=== PATIENT | female | born 1995 | race Caucasian/White ===

== ENCOUNTER 2020-11-17 18:16 | Emergency (ER) | payer BC, SELFPAY ==
--- NOTE | ~2020-11-17 | XR_ITS ---
EXAMINATION: XR ankle RT min 3V INDICATION: Right ankle pain TECHNIQUE: Four views of the right ankle are obtained. COMPARISON: None available FINDINGS: There is soft tissue swelling of ankle. Bone alignment is normal. There is no fracture. IMPRESSION: 1. No acute osseous abnormality. Reviewed, dictated and finalized at location A.
[2020-11-17 18:51] VITALS: BP 147/65; PULSE 77; RESP 14; TEMP 36.7; O2SAT 99
--- NOTE | 2020-11-17 19:31 | ED.GENADULT ---
HPI - General Adult General Chief complaint: Extremity Injury, Lower <Rosita Carballo PA-C - Last Filed: 11/17/20 20:17> Stated complaint: Right Ankle Injury <Rosita Carballo PA-C - Last Filed: 11/17/20 20:17> Time Seen by Provider: 11/17/20 19:30 <Rosita Carballo PA-C - Last Filed: 11/17/20 20:17> Source: patient <Rosita Carballo PA-C - Last Filed: 11/17/20 20:17> Mode of arrival: ambulatory <Rosita Carballo PA-C - Last Filed: 11/17/20 20:17> Limitations: no limitations <Rosita Carballo PA-C - Last Filed: 11/17/20 20:17> History of Present Illness HPI narrative: Patient was walking down a single step in her house earlier this evening when she stepped sideways and rolled her ankle . She did not feel any pop she was able to bear weight. She is not injured this ankle ever before. <Rosita Carballo PA-C - Last Filed: 11/17/20 20:17> Onset (ago): hour(s) <Rosita Carballo PA-C - Last Filed: 11/17/20 20:17> Severity: moderate <Rosita Carballo PA-C - Last Filed: 11/17/20 20:17> Pain Consistency: intermittent (with walking ) <Rosita Carballo PA-C - Last Filed: 11/17/20 20:17> Associated symptoms: denies other symptoms <Rosita Carballo PA-C - Last Filed: 11/17/20 20:17> Related Data Allergies/adverse reactions: Allergies Allergy/AdvReac Type Severity Reaction Status Date / Time No Known Allergies Allergy Verified 11/17/20 19:28 <MAVERICK Felton Last Filed: 11/17/20 20:17> Review of Systems Review of Systems: All systems reviewed & are unremarkable except as noted in HPI and below <Rosita Carballo PA-C - Last Filed: 11/17/20 20:17> Exam Const: General: no acute distress and alert <MAVERICK Felton Last Filed: 11/17/20 20:17> Orientation/consciousness: patient oriented x3 <MAVERICK Felton Last Filed: 11/17/20 20:17> Resp: Effort & Inspection: normal respiratory effort <MAVERICK Felton Last Filed: 11/17/20 20:17> Auscultation: clear to auscultation bilaterally <Rosita Carballo PA-C - Last Filed: 11/17/20 20:17> Cardio: Rate: regular rate <MAVERICK Felton Last Filed: 11/17/20 20:17> Rhythm: regular rhythm <MAVERICK Felton Last Filed: 11/17/20 20:17> Peripheral pulses: dorsalis pedis present on the right <MAVERICK Felton Last Filed: 11/17/20 20:17> Skin: General skin exam: normal color <MAVERICK Felton Last Filed: 11/17/20 20:17> Other: No bruising <MAVERICK Felton Last Filed: 11/17/20 20:17> Extrem: General: edema (ankle, lateral aspect) right <MAVERICK Felton Last Filed: 11/17/20 20:17> Psych: Mental Status: mental status grossly normal <MAVERICK Felton Last Filed: 11/17/20 20:17> Course Vital Signs Vital signs: Vital Signs Temperature 98.1 F 11/17/20 18:51 Pulse Rate 77 11/17/20 18:51 Respiratory Rate 14 11/17/20 18:51 Blood Pressure 147/65 H 11/17/20 18:51 Pulse Oximetry 99 11/17/20 18:51 Temperature 98.1 F 11/17/20 19:32 Pulse Rate 78 11/17/20 19:32 Respiratory Rate 18 11/17/20 19:32 Blood Pressure 147/65 H 11/17/20 19:32 Pulse Oximetry 99 11/17/20 19:32 <MAVERICK Felton Last Filed: 11/17/20 20:17> Medical Decision Making Vital Signs Vital Signs: Vital Signs Temperature 98.1 F 11/17/20 18:51 Pulse Rate 77 11/17/20 18:51 Respiratory Rate 14 11/17/20 18:51 Blood Pressure 147/65 H 11/17/20 18:51 Pulse Oximetry 99 11/17/20 18:51 Temperature 98.1 F 11/17/20 19:32 Pulse Rate 78 11/17/20 19:32 Respiratory Rate 18 11/17/20 19:32 Blood Pressure 147/65 H 11/17/20 19:32 Pulse Oximetry 99 11/17/20 19:32 <Rosita Carballo PA-C - Last Filed: 11/17/20 20:17> Discharge Plan Discharge Clinical Impression: Ankle sprain and strain <Rosita Carballo PA-C - Last Filed: 11/17/20 20:17> Patient Disposition: Home, Self-
[2020-11-17 19:32] VITALS: BP 147/65; PULSE 78; RESP 18; TEMP 36.7; O2SAT 99
== END 2020-11-17 20:21 | disposition home or self-care (01) ==
LOC: ANHED 20:11
PROVIDERS: Emergency Provider General Practice
DX: S93.401A Sprain of unspecified ligament of right ankle, initial encounter (principal); S96.911A Strain of unspecified muscle and tendon at ankle and foot level, right foot, initial encounter; X50.9XXA Other and unspecified overexertion or strenuous movements or postures, initial encounter
CPT/HCPCS: 73610; 99283

== ENCOUNTER 2021-12-25 11:34 | Emergency (ER) | payer BC, SELFPAY ==
[2021-12-25 12:03] VITALS: BP 126/76; PULSE 101; RESP 20; TEMP 36.3; O2SAT 98
--- NOTE | 2021-12-25 12:09 | ED.URI ---
HPI - URI/Sore Throat General Chief Complaint: Upper Respiratory Infection Stated Complaint: SORE THROAT/COUGH Time Seen by Provider: 12/25/21 12:09 Source: patient Mode of arrival: ambulatory Limitations: no limitations History of Present Illness HPI Narrative: 26-year-old female presents with complaint cough, congestion, sweating, fatigue, sore throat for 2-3 days. Afebrile. No nausea vomiting diarrhea. Patient's and has been sick with similar symptoms. Patient is 37 weeks . No complaints today. All systems reviewed and negative except as noted above. Related Data Home Medications Medication Instructions Recorded Confirmed No Home Medications 12/25/21 12/25/21 Allergies Allergy/AdvReac Type Severity Reaction Status Date / Time No Known Allergies Allergy Verified 12/25/21 11:56 Review of Systems Review of Systems: CONSTITUTIONAL: Denies fever, chills. Reports sweats. EYES: Denies visual changes, redness, or discharge. ENT: Reports rhinorrhea, congestion, sore throat. Today otalgia. CARDIOVASCULAR: Denies chest pain, palpitations, or edema. RESPIRATORY: Reports cough. Denies dyspnea. GASTROINTESTINAL: Denies abdominal pain, nausea, vomiting, or diarrhea. GENITOURINARY: Denies dysuria or hematuria. SKIN: Denies rash or itching. MUSCULOSKELETAL: Denies back pain, joint pain, or myalgia. NEUROLOGIC: Denies headache, numbness, or weakness. PSYCHIATRIC: Denies anxiety or depression. All other systems reviewed are negative, except as documented in HPI. PMFSH Comments At time of signature, agree with nursing past medical, surgical, social and family history. There is no relevant family history pertinent to the presenting complaint. Exam Narrative: GENERAL: This is a well-nourished, well-developed patient, in no apparent distress. HEAD: normocephalic, atraumatic. EYES: PERRL. Sclera clear/white. Vision is grossly intact. EARS: External ears normal, auditory canals clear and without drainage, TMs normal without perforation. Hearing grossly intact. NOSE: External nose normal with clear nasal drainage, mild congestion. THROAT: Mucous membranes moist, mild erythema with clear postnasal drainage. NECK: Neck supple, non-tender without lymphadenopathy, masses or thyromegaly. CARDIOVASCULAR: Regular rate and rhythm without murmurs, gallops, or rubs. RESPIRATORY: Clear to auscultation. Breath sounds equal bilaterally. No wheezes, rales, or rhonchi. SKIN: warm, Dry, intact with no suspicious lesions or rash, good texture and turgor. NEURO: awake, alert, and oriented to person, place and time. There were no obvious focal neurologic abnormalities. EXTREMITIES: No joint tenderness, effusion, or edema noted. Course Course Level of Care: Express Care Visit Vital Signs Vital signs: Vital Signs Temperature 36.3 C L 12/25/21 12:03 Pulse Rate 101 H 12/25/21 12:03 Respiratory Rate 20 12/25/21 12:03 Blood Pressure 126/76 12/25/21 12:03 Pulse Oximetry 98 12/25/21 12:03 Temperature 36.3 C L 12/25/21 12:03 Pulse Rate 101 H 12/25/21 12:03 Respiratory Rate 20 12/25/21 12:03 Blood Pressure 126/76 12/25/21 12:03 Pulse Oximetry 98 12/25/21 12:03 Reviewed MDM - URI/Sore Throat MDM Narrative Medical decision making narrative: Patient is aware of diagnosis, understands and agrees to treatment plan. Anticipatory guidance given. Patient agrees to follow-up as directed and is aware of reasons to seek care at the emergency department. Portions of this record may have been created with voice recognition software Differential Diagnosis Differential diagnosis: Likely upper respiratory infection, sinusitis, viral infection and influenza Lab Data Labs: Strep Screen Presumptive Negative *(Reference Range: Negative)* Discharge Plan Discharge Clinical Impression: Viral upper respiratory tract infection Patient
== END 2021-12-25 12:45 | disposition home or self-care (01) ==
PROVIDERS: Emergency Provider Nurse Practitioner Family; PCP Family Medicine
DX: O99.513 Diseases of the respiratory system complicating pregnancy, third trimester (principal); Z3A.37 37 weeks gestation of pregnancy; J06.9 Acute upper respiratory infection, unspecified
CPT/HCPCS: 87081; 87880; 99213; G0463

== ENCOUNTER 2022-10-06 16:14 | Emergency (ER) | payer BC, SELFPAY ==
[2022-10-06 16:32] VITALS: BP 124/70; PULSE 77; RESP 16; TEMP 36.4; O2SAT 100
--- NOTE | 2022-10-06 16:56 | ED.FEMALEGU ---
HPI - Female Genitourinary General Chief complaint: Urogenital-Female Stated complaint: UTI SYMPTOMS Time Seen by Provider: 10/06/22 16:53 Source: patient and RN notes reviewed Mode of arrival: ambulatory Limitations: no limitations History of Present Illness HPI Narrative: Patient presents today complaining of lower abdominal pain, dysuria, urgency x3 days. She tried some cranberry juice without relief. Patient is currently menstruating. Related Data Allergies Allergy/AdvReac Type Severity Reaction Status Date / Time No Known Allergies Allergy Verified 10/06/22 16:20 Review of Systems Review of Systems: CONSTITUTIONAL: Denies body aches, fever, chills, or sweats. EYES: Denies visual changes, redness, or discharge. ENT: Denies rhinorrhea, congestion, sore throat, or otalgia. CARDIOVASCULAR: Denies chest pain, palpitations, or edema. RESPIRATORY: Denies cough or dyspnea. GASTROINTESTINAL: Denies nausea, vomiting, or diarrhea.+ lower abdominal pain GENITOURINARY:+ dysuria, urgency SKIN: Denies rash, itching, or wounds. MUSCULOSKELETAL: Denies back pain, joint pain, or myalgia. NEUROLOGIC: Denies headache, numbness, tingling, or weakness. PSYCH: Denies depression or anxiety. PMFSH Comments At time of signature, I have reviewed and agree with nursing past medical, surgical, social and family history unless otherwise noted. Please see nursing chart for further information. There is no relevant family history pertinent to the presenting complaint Exam Narrative: GENERAL: Well-appearing, well-nourished, and in no acute distress. HEAD: Normocephalic, atraumatic. EYES: EOMI. No redness or drainage. Conjunctivae normal. ENT: Mucous membranes pink and moist. NECK: Normal AROM. CHEST: No respiratory distress. Clear to auscultation. HEART: Regular rate and rhythm. No murmur appreciated. Normal peripheral pulses.-CVAT ABDOMEN: Soft, nondistended, normal active bowel sounds. EXTREMITIES: Normal range of motion. No edema. SKIN: Warm, dry, no rash. Capillary refill normal. Normal skin turgor. NEURO: No focal deficits. Alert and oriented x3. Gait steady. PSYCH: Normal affect. No signs of depression or anxiety. Course Course Level of Care: Express Care Visit Vital Signs Vital signs: Vital Signs Temperature 97.5 F L 10/06/22 16:32 Pulse Rate 77 10/06/22 16:32 Respiratory Rate 16 10/06/22 16:32 Blood Pressure 124/70 10/06/22 16:32 Pulse Oximetry 100 10/06/22 16:32 Temperature 97.5 F L 10/06/22 16:32 Pulse Rate 77 10/06/22 16:32 Respiratory Rate 16 10/06/22 16:32 Blood Pressure 124/70 10/06/22 16:32 Pulse Oximetry 100 10/06/22 16:32 Reviewed. Pt has been instructed to follow up with her PCP regarding her elevated blood pressure today. MDM - Female Genitourinary MDM Narrative Medical decision making narrative: Urinalysis is consistent with UTI. Will start patient on Keflex. Anticipatory guidance given. Differential Diagnosis Differential diagnosis: Likely urinary tract infection, vaginitis and cystitis Lab Data Attestation: I reviewed the patient's lab results. Labs: Urine Glucose Negative Reference Range: Negative Urine Bilirubin 1+ Reference Range: Negative Urine Ketone Negative Reference Range: Negative Urine Specific [place] 1.030 Reference Range:1.001-1.035 Urine Blood 3+ Reference Range: Negative * * Urine pH 5.5 Reference Range: 5.0-9.0 Urine Protein 3+
== END 2022-10-06 17:02 | disposition home or self-care (01) ==
PROVIDERS: Emergency Provider Nurse Practitioner; PCP Obstetrics & Gynecology
DX: N30.01 Acute cystitis with hematuria (principal)
CPT/HCPCS: 81003; 87077; 87086; 87186; 99213; G0463

== ENCOUNTER 2023-04-23 16:00 | Emergency (ER) | payer BC, SELFPAY ==
[2023-04-23 16:38] VITALS: BP 103/70; PULSE 68; RESP 16; TEMP 36.4; O2SAT 100
--- NOTE | 2023-04-23 17:18 | ED.FEMALEGU ---
HPI - Female Genitourinary General Chief complaint: Urogenital-Female Stated complaint: Uti Symptoms Time Seen by Provider: 04/23/23 17:14 Source: patient, RN notes reviewed and old records reviewed Mode of arrival: ambulatory Limitations: no limitations History of Present Illness HPI Narrative: Patient presents today complaining of 2 day history of urgency, dysuria, and suprapubic pain. Denies fever, back pain, sweats or chills, nausea vomiting. She has tried no medication for symptoms prior to arrival. Related Data Allergies Allergy/AdvReac Type Severity Reaction Status Date / Time No Known Allergies Allergy Verified 10/06/22 16:20 Review of Systems Review of Systems: CONSTITUTIONAL: Denies body aches, fever, chills, or sweats. EYES: Denies visual changes, redness, or discharge. ENT: Denies rhinorrhea, congestion, sore throat, or otalgia. CARDIOVASCULAR: Denies chest pain, palpitations, or edema. RESPIRATORY: Denies cough or dyspnea. GASTROINTESTINAL: Denies abdominal pain, nausea, vomiting, or diarrhea. GENITOURINARY: + urgency, dysuria, suprapubic pain SKIN: Denies rash, itching, or wounds. MUSCULOSKELETAL: Denies back pain, joint pain, or myalgia. NEUROLOGIC: Denies headache, numbness, tingling, or weakness. PSYCH: Denies depression or anxiety. PMFSH Comments At time of signature, I have reviewed and agree with nursing past medical, surgical, social and family history unless otherwise noted. Please see nursing chart for further information. There is no relevant family history pertinent to the presenting complaint Exam Narrative: GENERAL: Well-appearing, well-nourished, and in no acute distress. HEAD: Normocephalic, atraumatic. EYES: EOMI. No redness or drainage. Conjunctivae normal. ENT: Mucous membranes pink and moist. NECK: Normal AROM. CHEST: No respiratory distress. Clear to auscultation. HEART: Regular rate and rhythm. No murmur appreciated. ABDOMEN: Soft, nondistended, normal active bowel sounds.+ mildly tender suprapubic area EXTREMITIES: Normal range of motion. No edema. SKIN: Warm, dry, no rash. Capillary refill normal. Normal skin turgor. NEURO: No focal deficits. Alert and oriented x3. Gait steady. PSYCH: Normal affect. No signs of depression or anxiety. Course Course Level of Care: Express Care Visit Vital Signs Vital signs: Vital Signs Temperature 97.5 F L 04/23/23 16:38 Pulse Rate 68 04/23/23 16:38 Respiratory Rate 16 04/23/23 16:38 Blood Pressure 103/70 04/23/23 16:38 Pulse Oximetry 100 04/23/23 16:38 Temperature 97.5 F L 04/23/23 16:38 Pulse Rate 68 04/23/23 16:38 Respiratory Rate 16 04/23/23 16:38 Blood Pressure 103/70 04/23/23 16:38 Pulse Oximetry 100 04/23/23 16:38 Reviewed MDM - Female Genitourinary MDM Narrative Medical decision making narrative: Urinalysis is consistent with UTI. Review of previous urine culture shows susceptibility to Keflex. Prescription sent to pharmacy. Anticipatory guidance given. Differential Diagnosis Differential diagnosis: Likely urinary tract infection, vaginitis and cystitis Lab Data Attestation: I reviewed the patient's lab results. Labs: Urine Glucose Negative Reference Range: Negative Urine Bilirubin Negative Reference Range: Negative Urine Ketone Trace Reference Range: Negative Urine Specific [place] 1.030 Reference Range:1.001-1.035 Urine Blood 1+ Reference Range: Negative * * Urine pH 6.5 Reference Range: 5.0-9.0 Urine P
== END 2023-04-23 17:24 | disposition home or self-care (01) ==
PROVIDERS: Emergency Provider Nurse Practitioner
DX: N39.0 Urinary tract infection, site not specified (principal); B96.20 Unspecified Escherichia coli [E. coli] as the cause of diseases classified elsewhere
CPT/HCPCS: 81003; 87077; 87086; 87088; 87186; 99213; G0463

== ENCOUNTER 2024-04-27 13:02 | Emergency (ER) | payer BC, SELFPAY ==
[2024-04-27 13:18] VITALS: BP 103/65; PULSE 83; RESP 16; TEMP 36.7; O2SAT 99
--- NOTE | 2024-04-27 13:36 | ED_ITS ---
HPI - URI/Sore Throat General Chief Complaint: Upper Respiratory Infection Stated Complaint: SORE THROAT History of Present Illness HPI Narrative: 28-year-old female presented for complaint of sore throat and headache. Onset 3 days. 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 Related Data Allergies Allergy/AdvReac Type Severity Reaction Status Date / Time No Known Allergies Allergy Verified 04/27/24 13:17 Review of Systems Review of Systems: CONSTITUTIONAL: Denies body aches, fever, chills, or sweats. EYES: Denies visual changes, redness, or discharge. ENT: Denies rhinorrhea, congestion, or otalgia. CARDIOVASCULAR: Denies chest pain, palpitations, or edema. RESPIRATORY: Denies dyspnea. GASTROINTESTINAL: Denies abdominal pain, nausea, vomiting, or diarrhea. SKIN: Denies rash, itching, or wounds. MUSCULOSKELETAL: Denies back pain, joint pain, or myalgia. NEUROLOGIC: Denies headache Exam Narrative: GENERAL: well-appearing, no acute distress. EYES: conjunctivae clear ENT: Mucous membranes moist. TM pearly desai with normal light reflex bilaterally; no tragal tenderness. Oropharynx not erythematous without lesions. Tonsils not enlarged and without exudate. No drooling, no hoarseness, no trismus, uvula midline. No tripod positioning, hot potato voice, or soft palate swelling. NECK: Supple. No lymphadenopathy CHEST: Clear to auscultation, breath sounds equal. No respiratory distress, speaks in full sentences. HEART: Regular rate and rhythm. No murmur heard. SKIN: Warm, dry, no rash. NEURO: Alert and oriented x3. Course Course Emergency Course: Patient is aware of diagnosis, understands and agrees to treatment plan. Antici patory guidance given. Patient agrees to follow-up as directed and is aware of reasons to seek care at the emergency department. Portions of this record may have been created with voice recognition software Level of Care: Express Care Visit Vital Signs Vital signs: Vital Signs Temperature 98.1 F 04/27/24 13:18 Pulse Rate 83 04/27/24 13:18 Respiratory Rate 16 04/27/24 13:18 Blood Pressure 103/65 04/27/24 13:18 Pulse Oximetry 99 04/27/24 13:18 Temperature 98.1 F 04/27/24 13:18 Pulse Rate 83 04/27/24 13:18 Respiratory Rate 16 04/27/24 13:18 Blood Pressure 103/65 04/27/24 13:18 Pulse Oximetry 99 04/27/24 13:18 MDM - URI/Sore Throat MDM Narrative Medical decision making narrative: POS strep result reviewed with pt. Advise supportive treatments. Patient is appropriate for outpatient treatment and follow-up. Differential Diagnosis Differential diagnosis: Likely upper respiratory infection, viral infection and pharyngitis Discharge Plan Discharge Clinical Impression: Strep pharyngitis Patient Disposition: Home, Self-Care Condition: Stable Instructions: Antibiotic Form, Strep Throat (ED) Additional Instructions: - Take the antibiotic as directed. Fever and sore throat typically resolve within one to three days. Most patients can return to work, after 12 to 24 hours of antibiotic therapy, provided you are fever free and otherwise well. -Eat and drink things that are easy to swallow, like soft foods, cool liquids, tea with honey, or popsicles . -Salt water gargles and/or may use topical anesthetic ( Chloraseptic spray) or lozenges to relieve dryness or throat pain -Alternate Tylenol and ibuprofen as needed for pain and fever as directed. -Frequent hand washing or hand ball point splitter is one of the best ways to prevent spread of infection. Throw away the toothbrush after 24hours of antibiotic. -Follow up with primary care provider in 2-3 days if condition is not improving -Go to the ER if you have trouble breathing, cannot drink enough fluids, have muffled voice or drooling, difficulty opening your mouth, or severe swelling. Patient Language: Mongolian Prescriptions: New amoxicillin 500 mg tablet 1,000 mg PO DAILY 10 Days Qty: 20 0RF Follow-up/Referrals: Karuna,Jenn Bill M.D. [Primary Care Provider] - Time of Disposition: 13:39
[2024-04-27 13:39] LABS: EDSTREPNEGPOS1 Positive (Negative)
== END 2024-04-27 13:48 | disposition home or self-care (01) ==
PROVIDERS: Emergency Provider Nurse Practitioner Family; PCP Obstetrics & Gynecology
DX: J02.0 Streptococcal pharyngitis (principal)
CPT/HCPCS: 87880; 99213; G0463

== ENCOUNTER 2025-02-10 16:21 | Emergency (ER) | payer BC, SELFPAY ==
--- NOTE | 2025-02-10 16:27 | ED.URI ---
HPI - URI/Sore Throat General Chief Complaint: Upper Respiratory Infection Stated Complaint: Strep Symptoms Time Seen by Provider: 02/10/25 16:25 Source: patient Mode of arrival: ambulatory Limitations: no limitations History of Present Illness HPI Narrative: patient is a 29-year-old female presents with 4 days of headache, body aches, chills and sore throat. Has been taking ibuprofen. Denies any fever, nausea, vomiting, diarrhea, congestion, cough. Related Data Allergies Allergy/AdvReac Type Severity Reaction Status Date / Time No Known Allergies Allergy Verified 04/27/24 13:17 Review of Systems Review of Systems: All systems reviewed & are unremarkable except as noted in HPI and below Constitutional: Constitutional: Reports chills, Denies fatigue, Denies fever(s), Reports headache(s), Denies malaise and Denies weakness Eyes: Eyes: Denies blurry vision, Denies itchy eyes and Denies loss of vision ENT: Denies otalgia, Reports headache(s), Denies nasal congestion, Denies sinus pain and Reports sore throat Cardiovascular: Cardiovascular: Denies chest pain, Denies irregular heart rhythm and Denies dyspnea Respiratory: Respiratory: Denies cough and Denies dyspnea Gastrointestinal: Gastrointestinal: Denies abdominal pain, Denies diarrhea, Denies nausea and Denies vomiting Musculoskeletal: Musculoskeletal: Denies back pain, Reports myalgias and Denies arthralgias Integumentary/Breasts: Skin/Breast: Denies pruritus and Denies rash Neurologic: Reports headache(s), Denies loss of vision and Denies weakness Psychiatric: Psychiatric: Reports no additional psychiatric complaints Endocrine: Endocrine: Denies fatigue Allergic/Immunologic: Allergic/Immunologic: Denies itchy eyes PMFSH Comments At time of signature, agree with nursing past medical, surgical, social and family history. There is no relevant family history pertinent to the presenting complaint. Exam Const: General: cooperative, healthy appearing, comfortable, no acute distress and well nourished Nutritional Appearance: well nourished Orientation/consciousness: patient oriented x3 Limitations: no limitations HENMT: Head: normal to inspection, normocephalic and atraumatic Ears: hearing grossly normal bilaterally, external ears normal, TM's normal bilaterally, EAC's normal and no periauricular adenopathy Face/Nose/Sinus: Normal external nose present, Abnormal mucous membranes and turbinates present erythematous bilateral and diffuse, normal facial exam, sinuses nontender and face symmetric Face and sinus: normal facial exam, sinuses nontender and face symmetric Mouth: Yes Normal oral and palatal mucosa present, Yes lip normal, Yes tongue normal, Yes Normal salivary glands and ducts present, Yes oropharynx normal and Yes moist mucous membranes Teeth and gingiva: dentition normal Throat: posterior oropharynx normal, tonsils normal and uvula midline Eyes: General: appearance normal, both eyes and all related structures Alignment and Position: alignment normal and position normal Periorbital: periorbital findings normal Eyelids: eyelids normal Pupils: Equal, round and reactive pupils present Neck: Neck: normal visual inspection, full ROM, no lymphadenopathy and supple Chest: Chest palpation & inspection: normal inspection of the chest and normal palpation of entire chest wall Resp: Effort & Inspection: normal respiratory effort and able to speak in complete sentences Auscultation: clear to auscultation bilaterally, no crackles, no rales, no rhonchi and no wheezes Cardio: Rate: regular rate Rhythm: regular rhythm Heart sounds: S1 normal heart sound present and S2 normal heart sound present GI: Inspection: normal to inspection Skin: General skin exam: normal color and no rashes or lesions noted Neuro: General: patient oriented x3 and moves all extremities Cranial nerves: Yes Equal, round and reactive pupils present Speech: normal speech Gait exam (Neuro): Normal gait present Extrem: General: normal to inspection, full ROM and no edema Psych: Appearance: grossly normal and well kempt Mental Status: mental status grossly normal Speech and movement: Normal speech and movement present Affect: normal affect Attitude: cooperative Thought process: Normal thought process present Course Course Emergency Course: Patient is aware of diagnosis, understands and agrees to treatment plan. Anticipatory guidance given. Patient agrees to follow-up as directed and is aware of reasons to seek care at the emergency department. Portions of this record may have been created with voice recognition software Level of Care: Express Care Visit Vital Signs Vital signs: Vital Signs Temperature 36.3 C L 02/10/25 16:32 Pulse Rate 75 02/10/25 16:32 Respiratory Rate 16 02/10/25 16:32 Blood Pressure 122/71 02/10/25 16:32 Pulse Oximetry 100 02/10/25 16:32 Temperature 36.3 C L 02/10/25 16:32 Pulse Rate 75 02/10/25 16:32 Respiratory Rate 16 02/10/25 16:32 Blood Pressure 122/71 02/10/25 16:32 Pulse Oximetry 100 02/10/25 16:32 MDM MDM Narrative Medical decision making narrative: Rapid strep was negative. A throat culture is pending. Symptoms likely viral in etiology. Pt well hydrated appearing, in no respiratory distress, hemodynamically stable. Recommend supportive care. The patient is stable at time of discharge the clinical impression was discussed and the patient was given the opportunity to ask questions, which were addressed as completely as possible given the information available at present. Anticipatory guidance and return to care precautions were discussed and the importance of primary care follow-up was stressed and encouraged. The patient voiced understanding of the plan, indications to return, and the need for follow-up. Exam findings show no acute concerns or changes Patient is appropriate for outpatient treatment and follow-up. Differential Diagnosis Differential Diagnosis: Differential diagnosis considered: Clemons virus, strep pharyngitis, allergic rhinitis, upper respiratory tract infection, sinusitis, rhinosinusitis, nasopharyngitis. viral pharyngitis, otitis media, otitis externa, otitis effusion, foreign body, cerumen impaction, viral syndrome, and influenza. Medical Records I have reviewed the following patient records and this information was taken into consideration when formulating the assessment and plan.: previous clinic visits Lab Data [facility] Lab Attestation statement: I personally reviewed the patient's lab results. Labs: Lab Results 02/10/25 Range/Units 16:38 POC Grp A Strep Screen Negative (Negative) Discharge Plan Discharge Clinical Impression: Pharyngitis Qualifiers: Pharyngitis/tonsillitis etiology: unspecified etiology Qualified Code(s): J02.9 - Acute pharyngitis, unspecified Patient Disposition: Home Condition: Stable Instructions: Viral Syndrome (ED) Additional Instructions: Your rapid strep swab was negative today at [facility]. A throat culture will be sent to the laboratory for further testing. If the test is positive, you will receive a phone call within 48 hours and an appropriate antibiotic will be initiated at that time. Your symptoms are likely due to a viral illness, which is not treated with antibiotics. Viral symptoms can be present for up to a few weeks. -For pain/fever, you may take: Tylenol 650-1000mg by mouth every 4-6 hours. Do not exceed 4000mg in 24 hours. Advil (Ibuprofen) 600 mg by mouth every 6 hours. Do not exceed 2400mg in 24 hours. 8 AM: Tylenol 11 AM: Ibuprofen 2 PM: Tylenol 5 PM: Ibuprofen 8 PM: Tylenol 11 PM: Ibuprofen 2 AM: Tylenol 5 AM: Ibuprofen -Antihistamine medication such as Benadryl/Zyrtec at night and Claritin/Janene during the day can help improve symptoms. -Use Flonase twice a day for 5 days then daily to help reduce the inflammation and dry up your sinuses. -You can also use Sudafed behind the pharmacy counter(12 or 24 hour). Be sure to drink plenty of water with these medications at least 8 ounces with every dose and it is important to drink 8 to 10 glasses of water per day. Water is a natural decongestant -Eat and drink things that are easy to swallow, like tea or soup, or popsicles. -Oral rinses such as: Salt water gargles and/or may use topical anesthetic (eg. Chloraseptic spray) or lozenges to relieve dryness or throat pain). -Frequent hand washing or hand roll mechanic is one of the best ways to prevent spread of infection. -Using a vaporizer or humidifier at night will also help thin secretions and help with coughing up phlegm. Call your Primary Care Doctor and make a follow-up appointment in 3 days. If your cough worsens, you develop a fever greater than 103, you develop shaking chills, a fast heartbeat, trouble breathing and/or feel you are are breathing much faster than usual, call your Primary Care Doctor or go to the ER. Patient Language: Greek Follow-up/Referrals: PHYSICIAN,MANUAL WINDER [Primary Care Provider, Internal Medicine] Time of Disposition: 16:51
[2025-02-10 16:32] VITALS: BP 122/71; PULSE 75; RESP 16; TEMP 36.3; O2SAT 100
[2025-02-10 16:47] LABS: EDSTREPNEGPOS1 Negative (Negative)
== END 2025-02-10 16:55 | disposition home or self-care (01) ==
PROVIDERS: Emergency Provider Nurse Practitioner Family
DX: J02.9 Acute pharyngitis, unspecified (principal)
CPT/HCPCS: 87081; 87880; 99213; G0463